=== PATIENT | male | born 1980 | race Caucasian/White ===

== ENCOUNTER 2017-03-04 01:12 | Emergency (ER) | payer SELFPAY ==
[~2017-03-04] VITALS: Ht 175.3 cm; Wt 100.0 kg
[~2017-03-04 01:12] MED LIST: POLY10O LEFT EYE
[2017-03-04 01:18] VITALS: BP 207/96; PULSE 98; RESP 20; TEMP 98.1; O2SAT 98
[2017-03-04] MEDS ORDERED: MORPHINE SULFATE 8 MG/ML INJ ONE (01:20)
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
[2017-03-04] MEDS ORDERED: MORPHINE SULFATE 8 MG/ML INJ IV PUSH ONE (01:30)
[2017-03-04 01:41] VITALS: BP 152/83; PULSE 82; RESP 18; O2SAT 98
[2017-03-04 01:54] LABS: AUTOMATED NEUTROPHIL # 4.5 TH/MM3 (1.8-7.7); BASOPHIL % 0.4 % (0.0-2.0); EOSINOPHIL # 0.1 TH/MM3 (0-0.4); EOSINOPHIL % 0.9 % (0.0-4.0); HEMATOCRIT 42.1 % (39.0-51.0); HEMO FLAGS DIFF FINAL; LYMPH % 27.8 % (9.0-44.0); LYMPHOCYTE # 2.1 TH/MM3 (1.0-4.8); MEAN CELL VOLUME 85.1 FL (80.0-100.0); MEAN CORPUSCULAR HGB CONC 35.3 % (32.0-36.0); MONO % 11.4 % (0.0-8.0); NEUT % 59.5 % (16.0-70.0); PLATELET COUNT 283 TH/MM3 (150-450); RED BLOOD COUNT 4.94 MIL/MM3 (4.50-5.90); WHITE BLOOD COUNT 7.6 TH/MM3 (4.0-11.0)
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
[2017-03-04 02:11] LABS: APTT (PATIENT) 28.5 SEC (24.3-30.1)
[2017-03-04 02:22] LABS: BICARBONATE 28.3 MEQ/L (21.0-32.0); POTASSIUM 3.9 MEQ/L (3.5-5.1)
[2017-03-04 02:41] LABS: CKMB 1.8 NG/ML (0.5-3.6)
[2017-03-04] MEDS ORDERED: KETOROLAC TROMETHAMINE 30 MG/ML (IVP) VIAL IV PUSH ONE (02:45)
[2017-03-04] MEDS ORDERED: IBUP-232 PO (04:24)
== END 2017-03-04 04:47 | disposition home or self-care (01) ==
LOC: NEPC 01:12
DX: S90.32XA Contusion of left foot, initial encounter (principal); V29.88XA Motorcycle rider (driver) (passenger) injured in other specified transport accidents, initial encounter
CPT/HCPCS: 73600; 73620; 80048; 82550; 82552; 85025; 85610; 85730; 86850; 86900; 86901; 96374; 96375; 99284; J1885; J2270; L2114

== ENCOUNTER 2017-03-19 08:26 | Emergency (ER) | payer SELFPAY ==
[~2017-03-19] VITALS: Ht 175.3 cm; Wt 100.0 kg
[~2017-03-19 08:26] MED LIST changes: +IBUP-232 PO; -POLY10O LEFT EYE
[2017-03-19 08:27] VITALS: BP 168/104; PULSE 91; RESP 16; TEMP 98.4; O2SAT 98
[2017-03-19] MEDS ORDERED: ONDANSETRON HCL 4 MG/2 ML VIAL IV PUSH ONE (08:45)
[2017-03-19] MEDS ORDERED: SODIUM CHLOR 0.9% 1000 ML INJ 1,000 ML IV ONE (08:45)
[2017-03-19] MEDS ORDERED: MORPHINE SULFATE 8 MG/ML INJ IV PUSH ONE (08:45)
--- NOTE | 2017-03-19 08:47 | PD ---
HPI Chief Complaint: Complaint Time Seen by Provider: 08:34 Travel History International Travel<30 days: No Contact w/Intl Traveler<30days: No Traveled to known affect area: No History of Present Illness HPI 36yo M presents to the ED with c/o persistent pain after being diagnosed with kidney stone yesterday. Pt states he has been having left flank pain that radiates to left groin since 7pm yesterday and was seen at [facility] and had CT scan that showed a 4mm kidney stone. Pt discharged with norco and took it this morning and said it did not help. Pt had 1 episode of NBNB vomit this morning. Denies any fever, chest pain, sob, dysuria, hematuria , testicular pain. PFSH Past Medical History Diminished Hearing: No Immunizations Current: Yes Seizures: Yes (child) Past Surgical History Oral Surgery: Yes (2015) Social History Alcohol Use: Yes (occasional ) Tobacco Use: No Substance Use: No Allergies-Medications (Allergen,Severity, Reaction): Coded Allergies: carbamazepine (Unverified Allergy, Unknown, UNKNOWN, 03/19/17) divalproex sodium (Unverified Allergy, Unknown, UNKNOWN, 03/19/17) Reported Meds & Prescriptions Reported Meds & Active Scripts Active Reported Flomax (Tamsulosin HCl) 0.4 Mg Cap 0.4 Mg PO HS Review of Systems Except as stated in HPI: all other systems reviewed are Neg Physical Exam Narrative GENERAL: 36yo M in moderate distress. SKIN: Focused skin assessment warm/dry. HEAD: Atraumatic. Normocephalic. EYES: Pupils equal and round. No scleral icterus. No injection or drainage. ENT: No nasal bleeding or discharge. Mucous membranes pink and moist. NECK: Trachea midline. No JVD. CARDIOVASCULAR: Regular rate and rhythm. No murmur appreciated. RESPIRATORY: No accessory muscle use. Clear to auscultation. Breath sounds equal bilaterally. GASTROINTESTINAL: Abdomen soft, +Left flank ttp. No rebound tenderness or guarding. : No testicular ttp. Back: +TTP left CVA. MUSCULOSKELETAL: No obvious deformities. No clubbing. No cyanosis. No edema. NEUROLOGICAL: Awake and alert. No obvious cranial nerve deficits. Motor grossly within normal limits. Normal speech. PSYCHIATRIC: Appropriate mood and affect; insight and judgment normal. Data Data Last Documented VS Vital Signs Date Time Temp Pulse Resp B/P (MAP) Pulse Ox O2 Delivery O2 Flow Rate FiO2 03/19/17 10:24 88 18 161/80 (107) 97 Room Air 03/19/17 08:27 98.4 Orders Orders Complete Blood Count With Diff (03/19/17 08:40) Basic Metabolic Panel (Bmp) (03/19/17 08:40) Urinalysis - C+S If Indicated (03/19/17 08:40) Morphine Inj (Morphine Inj) (03/19/17 08:45) Ondansetron Inj (Zofran Inj) (03/19/17 08:45) Sodium Chlor 0.9% 1000 Ml Inj (Ns 1000 M (03/19/17 08:45) Morphine Inj (Morphine Inj) (03/19/17 10:00) Ed Poc Ultrasound (03/19/17 ) Labs Laboratory Tests Test 03/19/17 08:50 03/19/17 10:10 White Blood Count 11.0 TH/MM3 Red Blood Count 4.77 MIL/MM3 Hemoglobin 13.8 GM/DL Hematocrit 40.5 % Mean Corpuscular Volume 84.9 FL Mean Corpuscular Hemoglobin 29.0 PG Mean Corpuscular Hemoglobin Concent 34.2 % Red Cell Distribution Width 13.1 % Platelet Count 258 TH/MM3 Mean Platelet Volume 7.6 FL Neutrophils (%) (Auto) 83.4 % Lymphocytes (%) (Auto) 9.8 % Monocytes (%) (Auto) 6.5 % Eosinophils (%) (Auto) 0.1 % Basophils (%) (Auto) 0.2 % Neutrophils # (Auto) 9.2 TH/MM3 Lymphocytes # (Auto) 1.1 TH/MM3 Monocytes # (Auto) 0.7 TH/MM3 Eosinophils # (Auto) 0.0 TH/MM3 Basophils # (Auto) 0.0 TH/MM3 CBC Comment DIFF FINAL Differential Comment Blood Urea Nitrogen 15 MG/DL Creatinine 1.25 MG/DL Random Glucose 117 MG/DL Calcium Level 8.5 MG/DL Sodium Level 141 MEQ/L Potassium Level 4.1 MEQ/L Chloride Level 108 MEQ/L Carbon Dioxide Level 23.6 MEQ/L Anion Gap 9 MEQ/L Estimat Glomerular Filtration Rate 66 ML/MIN Urine Color YELLOW Urine Turbidity CLEAR Urine pH 7.5 Urine Specific [place] 1.013 Urine Protein TRACE mg/dL Urine Glucose (UA) NEG mg/dL Urine Ketones NEG mg/dL Urine Occult Blood LARGE Urine Nitrite NEG Urine Bilirubin NEG Urine Urobilinogen LESS THAN 2.0 MG/DL Urine Leukocyte Esterase NEG Urine RBC 69 /hpf Urine WBC 3 /hpf Urine Bacteria OCC /hpf Urine Mucus FEW /lpf Microscopic Urinalysis Comment CULT NOT INDICATED MDM Medical Decision Making Medical Screen Exam Complete: Yes Emergency Medical Condition: Yes Interpretation(s) Laboratory Tests Test 03/19/17 08:50 03/19/17 10:10 White Blood Count 11.0 TH/MM3 (4.0-11.0) Red Blood Count 4.77 MIL/MM3 (4.50-5.90) Hemoglobin 13.8 GM/DL (13.0-17.0) Hematocrit 40.5 % (39.0-51.0) Mean Corpuscular Volume 84.9 FL (80.0-100.0) Mean Corpuscular Hemoglobin 29.0 PG (27.0-34.0) Mean Corpuscular Hemoglobin Concent 34.2 % (32.0-36.0) Red Cell Distribution Width 13.1 % (11.6-17.2) Platelet Count 258 TH/MM3 (150-450) Mean Platelet Volume 7.6 FL (7.0-11.0) Neutrophils (%) (Auto) 83.4 % (16.0-70.0) Lymphocytes (%) (Auto) 9.8 % (9.0-44.0) Monocytes (%) (Auto) 6.5 % (0.0-8.0) Eosinophils (%) (Auto) 0.1 % (0.0-4.0) Basophils (%) (Auto) 0.2 % (0.0-2.0) Neutrophils # (Auto) 9.2 TH/MM3 (1.8-7.7) Lymphocytes # (Auto) 1.1 TH/MM3 (1.0-4.8) Monocytes # (Auto) 0.7 TH/MM3 (0-0.9) Eosinophils # (Auto) 0.0 TH/MM3 (0-0.4) Basophils # (Auto) 0.0 TH/MM3 (0-0.2) CBC Comment DIFF FINAL Differential Comment Blood Urea Nitrogen 15 MG/DL (7-18) Creatinine 1.25 MG/DL (0.60-1.30) Random Glucose 117 MG/DL (74-106) Calcium Level 8.5 MG/DL (8.5-10.1) Sodium Level 141 MEQ/L (136-145) Potassium Level 4.1 MEQ/L (3.5-5.1) Chloride Level 108 MEQ/L (98-107) Carbon Dioxide Level 23.6 MEQ/L (21.0-32.0) Anion Gap 9 MEQ/L (5-15) Estimat Glomerular Filtration Rate 66 ML/MIN (>89) Differential Diagnosis Nephrolithiasis vs. pyelonephritis Narrative Course 36yo M here with persistent pain after being diagnosed with nephrolithiasis. I was able to obtain medical record from [facility] and records were reviewed. CTa/p showed minimal left obstructive uropathy secondary to a 4mm distal ureteral calculus. Pt was given flomax, zofran and norco. Pt is to follow up with urologist Dr. Lobo as needed. Labs were drawn and reviewed, no leukocytosis. Creatinine normal. Pt given morphine 6mg IV, NS IVF and zofran 4mg IV. Pt reevaluated at bedside and feels better. Pt tolerating PO now. Pt urinating normally. Bedside US showed no hydronephrosis in bilateral kidneys. UA showed large blood and RBC 69. WBC 3. Culture not indicated. Pt already have #20 norco so will have him continue taking that. Will add ibuprofen as needed. Pt is to follow up with urology as an outpatient. Return precautions given. Procedures Procedure Narrative Emergency department urinary tract ultrasound was performed with patient consent. Curvilinear probe was used in the transverse and sagittal views in the bilateral flank and suprapubic region without evidence of hydronephrosis. Diagnosis Primary Impression: Nephrolithiasis Patient Instructions: General Instructions Departure Forms: Tests/Procedures Additional Instructions: Please follow up with Dr. Pagan as instructed. Return to the ED if symptoms worsen. Please continue to take the norco, flomax and zofran that you were given yesterday night at [facility]. Med/Other Pt SpecificInfo: Prescription(s) given Scripts Ibuprofen (Ibuprofen) 600 Mg Tab 600 MG PO Q8H Y for PAIN, #20 TAB 0 Refills Prov: Georgie Gonzalez 03/19/17 Disposition: 01 DISCHARGE HOME Condition: Stable Georgie Gonzalez DO Mar 19, 2017 08:47
[2017-03-19 08:59] LABS: AUTOMATED NEUTROPHIL # 9.2 TH/MM3 (1.8-7.7); BASOPHIL % 0.2 % (0.0-2.0); EOSINOPHIL % 0.1 % (0.0-4.0); HEMATOCRIT 40.5 % (39.0-51.0); HEMO FLAGS DIFF FINAL; LYMPH % 9.8 % (9.0-44.0); LYMPHOCYTE # 1.1 TH/MM3 (1.0-4.8); MEAN CELL VOLUME 84.9 FL (80.0-100.0); MEAN CORPUSCULAR HGB CONC 34.2 % (32.0-36.0); MONO % 6.5 % (0.0-8.0); NEUT % 83.4 % (16.0-70.0); PLATELET COUNT 258 TH/MM3 (150-450); RED BLOOD COUNT 4.77 MIL/MM3 (4.50-5.90); RED CELL DISTRIBUTION WIDTH 13.1 % (11.6-17.2)
[2017-03-19 09:23] LABS: BICARBONATE 23.6 MEQ/L (21.0-32.0); POTASSIUM 4.1 MEQ/L (3.5-5.1)
[2017-03-19] MEDS ORDERED: MORPHINE SULFATE 4 MG/ML INJ IV PUSH ONE (10:00)
[2017-03-19] MEDS ORDERED: TAMS5CAP PO (10:04)
[2017-03-19 10:24] VITALS: BP 161/80; PULSE 88; RESP 18; O2SAT 97
[2017-03-19 10:52] LABS: BACTERIA, URINE OCC /hpf; BLOOD, URINE LARGE (NEG); COMMENT (UR) CULT NOT INDICATED; CULTURE IF INDICATED CULT NOT INDICATED; GLUCOSE,URINE NEG (NEG); KETONE, URINE NEG (NEG); MUCUS URINE FEW /lpf (OCC); NITRITE,URINE NEG (NEG); PH, URINE 7.5 (5.0-8.5); URINE COLOR YELLOW (YELLW/STRAW)
[2017-03-19] MEDS ORDERED: IBUP-232 PO (11:09)
[2017-03-20] MEDS ORDERED: NORC5TAB PO (18:09)
[2017-03-20] MEDS ORDERED: ZOFR4TAB PO (18:09)
[2017-03-20] MEDS ORDERED: CYCL1TAB29 PO (19:30)
== END 2017-03-19 11:34 | disposition home or self-care (01) ==
LOC: NEPE 08:26
DX: N20.0 Calculus of kidney (principal); Z79.899 Other long term (current) drug therapy; Z88.8 Allergy status to other drugs, medicaments and biological substances
CPT/HCPCS: 80048; 81001; 85025; 96361; 96374; 96375; 99284; J2270; J2405; J7030

== ENCOUNTER 2017-03-20 16:41 | Emergency (ER) | payer SELFPAY ==
[~2017-03-20] VITALS: Ht 175.3 cm; Wt 100.0 kg
[~2017-03-20 16:41] MED LIST changes: +TAMS5CAP PO
[2017-03-20 16:43] VITALS: BP 227/119; PULSE 88; RESP 26; TEMP 98.4; O2SAT 97
[2017-03-20 18:04] VITALS: BP 171/89; PULSE 88; RESP 18; O2SAT 98
[2017-03-20] MEDS ORDERED: ZOFR4TAB PO (18:09)
[2017-03-20] MEDS ORDERED: NORC5TAB PO (18:09)
[2017-03-20] MEDS ORDERED: SODIUM CHLOR 0.9% 1000 ML INJ 1,000 ML IV SCH (18:17)
--- NOTE | 2017-03-20 18:28 | PD ---
HPI Chief Complaint: Chest Pain Time Seen by Provider: 18:08 Travel History International Travel<30 days: No Contact w/Intl Traveler<30days: No Traveled to known affect area: No History of Present Illness HPI 36-year-old male complains of abdominal pain and left flank pain. Patient was seen in the emergency room at [facility] 2 days ago and with diagnosis of kidney stone in the left side. Patient was given prescription for Blackey, Flomax and Zofran. Patient was advised to follow-up with urologist. CT scan abdomen pelvis at [facility] show 4 mm left-sided kidney stone with hydronephrosis. Patient came to the emergency room at [place] yesterday and was seen for intractable pain of the left flank area. Bedside ultrasound done which shows left sided hydronephrosis. Patient was given IV fluid pain medication and prescription for ibuprofen and advised to follow-up with urologist. Patient states that he had intractable left flank pain with radiation to left groin area since yesterday. Patient also states that he has constipation for the past 3 days. Patient tried [id number] stool softener without much relief. Patient denies any fever chills. On a scale of 1 -10 the pain is a 10. PFSH Past Medical History Diminished Hearing: No Kidney Stones: Yes Immunizations Current: Yes Seizures: Yes (child) Past Surgical History Oral Surgery: Yes (2014) Social History Alcohol Use: Yes (occasional ) Tobacco Use: No Substance Use: No Allergies-Medications (Allergen,Severity, Reaction): Coded Allergies: carbamazepine (Unverified Allergy, Unknown, UNKNOWN, 03/20/17) divalproex sodium (Unverified Allergy, Unknown, UNKNOWN, 03/20/17) Reported Meds & Prescriptions Reported Meds & Active Scripts Active Flexeril (Cyclobenzaprine HCl) 10 Mg Tab 10 Mg PO TID Ibuprofen 600 Mg Tab 600 Mg PO Q8H PRN Reported Blackey (Hydrocodone-Acetaminophen) 5-325 mg Tab 1-2 Tab PO Q6H PRN Zofran (Ondansetron HCl) 4 Mg Tab 4 Mg PO Q6HR PRN Flomax (Tamsulosin HCl) 0.4 Mg Cap 0.4 Mg PO HS Review of Systems General / Constitutional: No: Fever Eyes: No: Visual changes HENT: No: Headaches Cardiovascular: No: Chest Pain or Discomfort Respiratory: No: Shortness of Breath Gastrointestinal: Positive: Abdominal Pain Genitourinary: No: Dysuria Musculoskeletal: No: Pain Skin: No Rash Neurologic: No: Weakness Psychiatric: No: Depression Endocrine: No: Polydipsia Hematologic/Lymphatic: No: Easy Bruising Physical Exam Narrative GENERAL: Well-nourished, well-developed patient. SKIN: Focused skin assessment warm/dry. HEAD: Normocephalic. EYES: No scleral icterus. No injection or drainage. NECK: Supple, trachea midline. No JVD or lymphadenopathy. CARDIOVASCULAR: Regular rate and rhythm without murmurs, gallops, or rubs. RESPIRATORY: Breath sounds equal bilaterally. No accessory muscle use. GASTROINTESTINAL: Abdomen soft, nondistended. Patient has moderate tenderness on palpation left side abdomen. No rebound tenderness. No mass. MUSCULOSKELETAL: No cyanosis, or edema. BACK: Patient has moderate tenderness on palpation left flank area, without obvious deformity. No CVA tenderness. Neurologic exam normal. Data Data Last Documented VS Vital Signs Date Time Temp Pulse Resp B/P (MAP) Pulse Ox O2 Delivery O2 Flow Rate FiO2 03/20/17 19:19 16 03/20/17 18:51 98 Room Air 03/20/17 18:10 82 03/20/17 16:43 98.4 Orders Orders Electrocardiogram (03/20/17 ) Complete Blood Count With Diff (03/20/17 18:17) Comprehensive Metabolic Panel (03/20/17 18:17) Urinalysis - C+S If Indicated (03/20/17 18:17) Ct Abd/Pel W/O Iv Contrast (03/20/17 18:17) Iv Access Insert/Monitor (03/20/17 18:17) Ecg Monitoring (03/20/17 18:17) Oximetry (03/20/17 18:17) Morphine Inj (Morphine Inj) (03/20/17 18:30) Ondansetron Inj (Zofran Inj) (03/20/17 18:30) Sodium Chlor 0.9% 1000 Ml Inj (Ns 1000 M (03/20/17 18:17) Sodium Chloride 0.9% Flush (Ns Flush) (03/20/17 18:30) Ketorolac Inj (Toradol Inj) (03/20/17 18:30) Labs Laboratory Tests Test 03/20/17 18:40 White Blood Count 12.6 TH/MM3 Red Blood Count 4.70 MIL/MM3 Hemoglobin 13.8 GM/DL Hematocrit 40.0 % Mean Corpuscular Volume 85.1 FL Mean Corpuscular Hemoglobin 29.3 PG Mean Corpuscular Hemoglobin Concent 34.4 % Red Cell Distribution Width 12.9 % Platelet Count 232 TH/MM3 Mean Platelet Volume 7.7 FL Neutrophils (%) (Auto) 84.6 % Lymphocytes (%) (Auto) 6.9 % Monocytes (%) (Auto) 8.3 % Eosinophils (%) (Auto) 0.1 % Basophils (%) (Auto) 0.1 % Neutrophils # (Auto) 10.7 TH/MM3 Lymphocytes # (Auto) 0.9 TH/MM3 Monocytes # (Auto) 1.1 TH/MM3 Eosinophils # (Auto) 0.0 TH/MM3 Basophils # (Auto) 0.0 TH/MM3 CBC Comment DIFF FINAL Differential Comment Urine Color LIGHT-YELLOW Urine Turbidity CLEAR Urine pH 5.5 Urine Specific [place] 1.009 Urine Protein NEG mg/dL Urine Glucose (UA) NEG mg/dL Urine Ketones NEG mg/dL Urine Occult Blood LARGE Urine Nitrite NEG Urine Bilirubin NEG Urine Urobilinogen LESS THAN 2.0 MG/DL Urine Leukocyte Esterase TRACE Urine RBC 99 /hpf Urine WBC 3 /hpf Urine Mucus FEW /lpf Microscopic Urinalysis Comment CULT NOT INDICATED Blood Urea Nitrogen 11 MG/DL Creatinine 1.02 MG/DL Random Glucose 100 MG/DL Total Protein 7.5 GM/DL Albumin 4.2 GM/DL Calcium Level 9.2 MG/DL Alkaline Phosphatase 98 U/L Aspartate Amino Transf (AST/SGOT) 25 U/L Alanine Aminotransferase (ALT/SGPT) 55 U/L Total Bilirubin 0.5 MG/DL Sodium Level 140 MEQ/L Potassium Level 3.6 MEQ/L Chloride Level 105 MEQ/L Carbon Dioxide Level 28.4 MEQ/L Anion Gap 7 MEQ/L Estimat Glomerular Filtration Rate 84 ML/MIN [facility] Medical Decision Making Medical Screen Exam Complete: Yes Emergency Medical Condition: Yes Interpretation(s) [address] scan abdomen pelvis shows a 3 x 4 mm left UVJ stone causing mild to moderate obstructive uropathy. CBC WBC 12.6. 84 neutrophil. UA positive RBC. Differential Diagnosis Differential diagnosis including nephrolithiasis, pyelonephritis. Narrative Course 36-year-old male with intractable left flank pain and left abdominal pain. Patient complains of constipation also. History of kidney stone. Normal saline solution 1 L IV bolus. Morphine 4 mg IV. Zofran 4 mg IV. Toradol 30 mg IV. Diagnosis Primary Impression: Nephrolithiasis Patient Instructions: General Instructions Additional Instructions: Encourage by mouth fluid. Take medications as needed for pain. Follow-up with urologist. Return if intractable pain, fever, persistent vomiting. Over-the- counter stool softener as needed. Med/Other Pt SpecificInfo: Prescription(s) given Scripts Cyclobenzaprine (Flexeril) 10 Mg Tab 10 MG PO TID for Muscle Spasm, #60 TAB 0 Refills Prov: Sky Gaona MD 03/20/17 Disposition: 01 DISCHARGE HOME Condition: Stable Sky Gaona MD Mar 20, 2017 18:28
[2017-03-20] MEDS ORDERED: SODIUM CHLORIDE 0.9% FLUSH 10 ML FLUSH IV FLUSH PRN (18:30)
[2017-03-20] MEDS ORDERED: MORPHINE SULFATE 4 MG/ML INJ IV PUSH ONE (18:30)
[2017-03-20] MEDS ORDERED: ONDANSETRON HCL 4 MG/2 ML VIAL IVP ONE (18:30)
[2017-03-20] MEDS ORDERED: KETOROLAC TROMETHAMINE 30 MG/ML (IVP) VIAL IV PUSH ONE (18:30)
[2017-03-20 18:51] VITALS: O2SAT 98
[2017-03-20 18:56] LABS: AUTOMATED NEUTROPHIL # 10.7 TH/MM3 (1.8-7.7); BASOPHIL % 0.1 % (0.0-2.0); EOSINOPHIL % 0.1 % (0.0-4.0); HEMO FLAGS DIFF FINAL; LYMPH % 6.9 % (9.0-44.0); LYMPHOCYTE # 0.9 TH/MM3 (1.0-4.8); MEAN CELL VOLUME 85.1 FL (80.0-100.0); MEAN CORPUSCULAR HEMOGLOBIN 29.3 PG (27.0-34.0); MEAN CORPUSCULAR HGB CONC 34.4 % (32.0-36.0); MONO % 8.3 % (0.0-8.0); NEUT % 84.6 % (16.0-70.0); PLATELET COUNT 232 TH/MM3 (150-450); RED CELL DISTRIBUTION WIDTH 12.9 % (11.6-17.2); WHITE BLOOD COUNT 12.6 TH/MM3 (4.0-11.0)
[2017-03-20 18:58] LABS: BLOOD, URINE LARGE (NEG); COMMENT (UR) CULT NOT INDICATED; CULTURE IF INDICATED CULT NOT INDICATED; GLUCOSE,URINE NEG (NEG); KETONE, URINE NEG (NEG); MUCUS URINE FEW /lpf (OCC); NITRITE,URINE NEG (NEG); PH, URINE 5.5 (5.0-8.5); URINE COLOR LIGHT-YELLOW (YELLW/STRAW)
--- NOTE | 2017-03-20 19:12 | RADRPT ---
EXAM DATE/TIME: 03/20/2017 18:55 [facility] COMPARISON: No previous studies available for comparison. INDICATIONS : Left flank pain. ORAL CONTRAST: No oral contrast ingested. RADIATION DOSE: 22.31 CTDIvol (mGy) MEDICAL HISTORY : Seizures. Renal calculi. SURGICAL HISTORY : None. ENCOUNTER: Initial ACUITY: 2 days PAIN SCALE: 10/10 LOCATION: Left flank TECHNIQUE: Volumetric scanning of the abdomen and pelvis was performed. Using automated exposure control and ad justment of the mA and/or kV according to patient size, radiation dose was kept as low as reasonably achievable to obtain optimal diagnostic quality images. DICOM format image data is available electro nically for review and comparison. FINDINGS: LOWER LUNGS: Trace atelectasis of the visualized lung bases. LIVER: Homogeneous density without lesion. There is no dilation of the biliary tree. No calcified gallston es. SPLEEN: Normal size without lesion. PANCREAS: Within normal limits. KIDNEYS: There is a 3 x 4 mm stone of the left ureterovesical junction causing mild to moderate hydronephrosis and hydroureter. There is mild left perinephric edema. No stones or obstruction of the right kidney. ADRENAL GLANDS: Within normal limits. VASCULAR: There is no aortic aneurysm. BOWEL/MESENTERY: The stomach, small bowel, and colon demonstrate no acute abnormality. There is no free intraperitone al air or fluid. ABDOMINAL WALL: Within normal limits. RETROPERITONEUM: There is no lymphadenopathy. BLADDER: No wall thickening or mass. REPRODUCTIVE: Within normal limits. INGUINAL: There is no lymphadenopathy or hernia. MUSCULOSKELETAL: Within normal limits for patient age. CONCLUSION: 3 x 4 mm left UVJ stone causing mild to moderate obstructive uropathy. The stone is difficult to see on the initial taping supervisor radiograph. Mukesh Berry MD on March 20, 2017 at 19:08 Board Certified Radiologist. This report was verified electronically.
[2017-03-20 19:19] VITALS: RESP 16
[2017-03-20 19:22] LABS: ALT (GPT) 55 U/L (12-78); ANION GAP 7 MEQ/L (5-15); AST (GOT) 25 U/L (15-37); BICARBONATE 28.4 MEQ/L (21.0-32.0); BLOOD UREA NITROGEN 11 MG/DL (7-18); CHLORIDE 105 MEQ/L (98-107); GLOMERULAR FILTRATION RATE 84 ML/MIN (>89); POTASSIUM 3.6 MEQ/L (3.5-5.1); SODIUM (NA) 140 MEQ/L (136-145)
[2017-03-20 19:25] LABS: ALKALINE PHOSPHATASE 98 U/L (45-117); TOTAL BILIRUBIN ADULT 0.5 MG/DL (0.2-1.0)
[2017-03-20] MEDS ORDERED: CYCL1TAB29 PO (19:30)
--- NOTE | 2017-03-20 21:48 | EKG ---
Date Performed: 03/20/2017 Time Performed: 16:47:49 PTAGE: 36 years EKG: Sinus rhythm WITH SINUS ARRHYTHMIA BORDERLINE ECG NO PREVIOUS TRACING DOCTOR: Mati Krueger Interpretating Date/Time 03/20/2017 21:47:33
== END 2017-03-20 20:26 | disposition home or self-care (01) ==
LOC: NEPD 16:41
DX: N20.0 Calculus of kidney (principal); I49.8 Other specified cardiac arrhythmias
CPT/HCPCS: 74176; 80053; 81001; 85025; 93005; 96374; 96375; 99285; J1885; J2270; J2405; J7030